=== PATIENT | male | born 1945 | race Caucasian/White ===

== ENCOUNTER 2017-12-18 06:29 | Day surgery (SDC) | payer MEDICARE, OTHER ==
[2017-12-18] VITALS (89 sets, daily range): BP systolic 122–150; BP diastolic 62–102; PULSE 49–58; TEMP 97.7; O2SAT 95–99
[~2017-12-18] VITALS: Ht 172.8 cm; Wt 87.7 kg
[~2017-12-18 06:29] MED LIST: ASPIRIN 81M81 MG/TA2 PO; FISH OIL 1000MG1 CAP PO; LIPITOR 40MG TA40 MG PO; LOPRESSOR 550 MG/TAB PO; NEXIUM 40MG40 MG PO; NIASPAN750 MG PO; NITROSTAT0.4 MG/TAB SL; OFEV100 MG PO; OXYGEN; PLAVIX 75MG TAB75 MG PO; PRESERVISION1 SGL PO
[2017-12-18 07:09] LABS: PROTHROMBIN TIME 11.6 SECONDS (9.7-12.8)
[2017-12-18 07:10] LABS: HEMATOCRIT 40.4 % (42.0-52.0); HEMOGLOBIN 13.3 g/dl (13.5-18.0); MEAN CELL VOLUME 94 fl (80.0-100.0); MEAN CORPUSCULAR HEMOGLOBIN 31 pg (27.0-31.0); MEAN CORPUSCULAR HGB CONC 33 g/dl (33.0-37.0); MEAN PLATELET VOLUME 10.4 fl (7.4-10.4); PLATELET COUNT 169 K/mm3 (130-400); REDCELL DISTRIBUTION WIDTH-CV 12.5 % (11.5-14.5)
[2017-12-18] MEDS ORDERED: AMBIEN 10MG10 MG PO (07:32)
[2017-12-18] MEDS ORDERED: OCUVITE1 TA1 PO (07:33)
[2017-12-18] MEDS ORDERED: CALCIUM 600-D 61 TAB PO (07:34)
[2017-12-18] MEDS ORDERED: CENTRUM SILVER1 TAB PO (07:35)
[2017-12-18 07:36] LABS: CALCIUM 9.7 mg/dL (8.4-10.2); CREATININE, serum 1.03 mg/dL (0.66-1.25); POTASSIUM 3.8 mmol/L (3.4-5.0)
[2017-12-18] MEDS ORDERED: IMDUR 30MG30 MG/TAB PO (07:43)
[2017-12-18] MEDS ORDERED: VIAGRA50 M1 PO (07:45)
[2017-12-18] MEDS ORDERED: MASON NATURAL2000 IU PO (07:46)
[2017-12-18] MEDS ORDERED: PROTONIX 40MG T40 MG PO (12:12)
== END 2017-12-18 17:15 | disposition home or self-care (01) ==
LOC: COL.CAR 06:29
PROVIDERS: Internal Medicine Cardiovascular Disease
DX: I25.10 Atherosclerotic heart disease of native coronary artery without angina pectoris (principal); I35.0 Nonrheumatic aortic (valve) stenosis; I71.2 Thoracic aortic aneurysm, without rupture; E78.5 Hyperlipidemia, unspecified; I10 Essential (primary) hypertension; J84.9 Interstitial pulmonary disease, unspecified; I25.2 Old myocardial infarction; K21.9 Gastro-esophageal reflux disease without esophagitis; Z95.5 Presence of coronary angioplasty implant and graft; Z79.82 Long term (current) use of aspirin; Z79.01 Long term (current) use of anticoagulants; Z87.891 Personal history of nicotine dependence; Z82.49 Family history of ischemic heart disease and other diseases of the circulatory system; Z82.3 Family history of stroke
CPT/HCPCS: J2250; J2704; J3010; Q9967

== ENCOUNTER 2020-04-07 21:55 | Observation (INO) | payer MEDICARE, OTHER ==
[2020-04-07] VITALS (23 sets, daily range): BP systolic 139; BP diastolic 62; PULSE 63; TEMP 97.6; O2SAT 93–97
[~2020-04-07] VITALS: Ht 172.7 cm; Wt 81.6 kg
[~2020-04-07 21:55] MED LIST changes: +AMBIEN 10MG10 MG PO; +CALCIUM 600-D 61 TAB PO; +CENTRUM SILVER1 TAB PO; +IMDUR 30MG30 MG/TAB PO; +MASON NATURAL2000 IU PO; +OCUVITE1 TA1 PO; +PROTONIX 40MG T40 MG PO; +VIAGRA50 M1 PO
[2020-04-08] VITALS (675 sets, daily range): BP systolic 110–151; BP diastolic 56–75; PULSE 51–75; TEMP 97.6–98; O2SAT 80–100
[2020-04-08] MEDS ORDERED: CITRACAL-D3 ER1 EACH PO (00:14)
[2020-04-08] MEDS ORDERED: CENTRUM SILVER1 TAB PO (00:16)
[2020-04-08] MEDS ORDERED: ELIQUIS 5MG PO (00:18)
[2020-04-08] MEDS ORDERED: FLONASEALLERGY NS (00:20)
[2020-04-08] MEDS ORDERED: CARDIZEM120 MG PO (00:30)
[2020-04-08] MEDS ORDERED: VITAMINC1000TA PO (00:31)
[2020-04-08] MEDS ORDERED: TAZTIA120 PO (01:25)
[2020-04-08 01:40] LABS: INR 1.5 (0.8-3.0); PROTHROMBIN TIME 17.1 SECONDS (9.7-12.8)
[2020-04-08 01:43] LABS: MAGNESIUM 2.1 mg/dL (1.6-2.3); PARTIAL THROMBOPLASTIN TIME 37.1 SECONDS (26.0-37.0)
[2020-04-08 01:57] LABS: TROPONIN-I < 0.012 ng/mL (0.000-0.035)
--- NOTE | 2020-04-08 02:46 | NUR ---
221 - RECEIVED REPORT FROM JORDEN JAY FROM [facility]. 2323 - PT ARRIVED IN UNIT, ABLE TO TO TRASNFER SELF TO BED INDEPENDENTLY. DENIES ANY PAIN AT THIS TIME, VSS, AND ON ROOM AIR. PT ORIENTED TO VISITATION POLICY. CALL LIGHT AND NECESSITIES WITHIN REACH. 0116 - CALLED [facility] FOR CT OF CHEST AND ECHO RESULTS, AND PER JORDEN DELEON, STILL PENDING AND WILL NOT BE AVAILABLE TONIGHT. FAX NUMBER PROVIDED FOR WHEN RESULT IS OUT IN THE MORNING. JACQUES FLORES MADE AWARE. WILL PASS THIS TO ONCOMING DAY SHIFT NURSE WELL.
[2020-04-08 05:50] LABS: BASO % 0.5 % (0.0-2.0); EOS # 0.2 (0.0-0.7); EOS % 3.6 % (0-4.0); GRAN # 3.8 (1.4-6.5); GRAN % 63.3 % (42.2-75.2); HEMATOCRIT 39.5 % (42.0-52.0); HEMOGLOBIN 13.2 g/dl (13.5-18.0); LYMPH % 17.1 % (20.0-51.0); MEAN CELL VOLUME 90 fl (80.0-100.0); MEAN CORPUSCULAR HEMOGLOBIN 30 pg (27.0-31.0); MEAN CORPUSCULAR HGB CONC 33 g/dl (33.0-37.0); MEAN PLATELET VOLUME 10.3 fl (7.4-10.4); MONO # 0.9 (0.1-0.6); MONO % 15.2 % (1.7-9.3); PLATELET COUNT 125 K/mm3 (130-400); RED BLOOD COUNT 4.37 M/mm3 (4.20-5.60); REDCELL DISTRIBUTION WIDTH-CV 13.5 % (11.5-14.5)
[2020-04-08] MEDS ORDERED: SINGULAIR 110 MG/TAB PO (05:50)
[2020-04-08 05:59] LABS: ALANINE AMINOTRANSFERASE 27 U/L (4-49); ALBUMIN 3.6 gm/dL (3.5-5.0); ALKALINE PHOSPHATASE 112 U/L (50-136); ANION GAP 7 mmol/L (7-16); AST,SGOT 31 U/L (15-37); BILIRUBIN,TOTAL 0.7 mg/dL (0.0-1.0); BLOOD UREA NITROGEN 16 mg/dL (9-20); CALCIUM 8.9 mg/dL (8.4-10.2); CARBON DIOXIDE 25 mmol/L (22-30); CHLORIDE 106 mmol/L (98-107); CHOLESTEROL 95 mg/dL (120-200); CHOLESTEROL RISK RATIO 3.3; CREATININE, serum 0.85 (0.66-1.25); GLUCOSE 106 mg/dL (74-106); HDL CHOLESTEROL 28 mg/dL; LDL CHOLESTEROL 43 mg/dL; POTASSIUM 4.1 mmol/L (3.4-5.0); SODIUM 138 mmol/L (137-145); TOTAL PROTEIN 6.8 gm/dL (6.4-8.2); TRIGLYCERIDE 118 mg/dL
[2020-04-08 06:10] LABS: TROPONIN-I < 0.012 ng/mL (0.000-0.035)
--- NOTE | 2020-04-08 09:43 | NUR ---
SW met with the patient to discuss discharge plan. The patient lives in [place] with his , Nay (ph#[phone]), and oldest daughter, Ariana. He reports independence with ADLs and does not have any assistance devices. He has nocturnal oxygen at home from [facility] out of [place]. The patient's PCP is Dr. David Alejandro and he receives his medications at the [facility] in [place]. He reports no difficulties obtaining his meds. The patient's advanced directives are in EMR. His DPOA-HC is his and the alternate is his daughter, Ariana. The patient plans to return home with his family upon discharge. The patient is currently on 2 liters of oxygen. SW to continue to monitor.
[2020-04-08] MEDS ORDERED: PROTONIX 40MG T40 MG PO (16:51)
--- NOTE | 2020-04-08 17:08 | NUR ---
Dr Nielson in to discharge patient. Lexiscan negative. No new findings on Chest CT. No further chest pain. Update provided to and daughter over the phone. INT removed. Pt dressed.
--- NOTE | 2020-04-08 18:29 | NUR ---
dc home ambulatory accompanied by nursing staff
== END 2020-04-08 17:25 | disposition home or self-care (01) ==
LOC: IMCU 21:55
PROVIDERS: Nurse Practitioner Family; ADMIT Student in an Organized Health Care Education/Training Program
DX: R07.89 Other chest pain (principal); I35.0 Nonrheumatic aortic (valve) stenosis; I71.9 Aortic aneurysm of unspecified site, without rupture; I10 Essential (primary) hypertension; E78.5 Hyperlipidemia, unspecified; J84.10 Pulmonary fibrosis, unspecified; I25.10 Atherosclerotic heart disease of native coronary artery without angina pectoris; Z95.5 Presence of coronary angioplasty implant and graft; Z95.2 Presence of prosthetic heart valve; K22.70 Barrett's esophagus without dysplasia; Z85.46 Personal history of malignant neoplasm of prostate; Z79.01 Long term (current) use of anticoagulants
CPT/HCPCS: A9500; J2785; J7030

== ENCOUNTER 2021-02-03 09:27 | Day surgery (SDC) | payer MEDICARE, OTHER ==
[~2021-02-03] VITALS: Ht 172.8 cm; Wt 78.8 kg
[2021-02-03] VITALS (10 sets, daily range): BP systolic 107–136; BP diastolic 56–69; PULSE 53–60; TEMP 97.3
[~2021-02-03 09:27] MED LIST changes: +CARDIZEM120 MG PO; +CITRACAL-D3 ER1 EACH PO; +ELIQUIS 5MG PO; +FLONASEALLERGY NS; +SINGULAIR 110 MG/TAB PO; +TAZTIA120 PO; +VITAMINC1000TA PO
[2021-02-03 10:19] LABS: HEMATOCRIT 43.6 % (42.0-52.0); HEMOGLOBIN 14.5 g/dl (13.5-18.0); MEAN CELL VOLUME 92 fl (80.0-100.0); MEAN CORPUSCULAR HEMOGLOBIN 31 pg (27.0-31.0); MEAN CORPUSCULAR HGB CONC 33 g/dl (33.0-37.0); MEAN PLATELET VOLUME 10.2 fl (7.4-10.4); PLATELET COUNT 169 K/mm3 (130-400); RED BLOOD COUNT 4.73 M/mm3 (4.20-5.60); REDCELL DISTRIBUTION WIDTH-CV 13.6 % (11.5-14.5)
[2021-02-03 10:28] LABS: INR 1.1 (0.8-3.0); PROTHROMBIN TIME 12.3 SECONDS (9.7-12.8)
[2021-02-03 10:29] LABS: CALCIUM 9.6 mg/dL (8.4-10.2); CREATININE, serum 1.1 (0.66-1.25); POTASSIUM 4.4 mmol/L (3.4-5.0)
[2021-02-03] MEDS ORDERED: VITAMINC1000TA PO (10:32)
[2021-02-03] MEDS ORDERED: PROTONIX 40MG T40 MG PO (10:32)
--- NOTE | 2021-02-03 11:10 | NUR ---
SEE MERGE FOR ALL MEDICATION ADMINISTRATION TIMES, INTRA AND POST SEDATION ASSESSMENT
[2021-02-03] MEDS ORDERED: LASIX 20MG TABL20 MG PO (15:14)
--- NOTE | 2021-02-03 16:15 | NUR ---
Pt returned from [employer] at 1215. Report was received from Tiff LEONARDO. Pt did well during his period of monitoring. Pt remained in sinus yuliana, 50's, no problems with TR band, pt was able to eat lunch, and dc,rx and fu instructions were reviewed. TR band was deflated with no problem, site dressed with bandaid, 2 folded 2x2s and coban. cms remains intact distal. iv dc'd with cath intact, dressing applied. Pt has been amb in room with steady gait. to exit at this time via wheelchair.
== END 2021-02-03 18:21 | disposition home or self-care (01) ==
LOC: COL.CAR 09:27
PROVIDERS: Internal Medicine Cardiovascular Disease
DX: R06.09 Other forms of dyspnea (principal); I25.10 Atherosclerotic heart disease of native coronary artery without angina pectoris; I38 Endocarditis, valve unspecified; I10 Essential (primary) hypertension; E78.5 Hyperlipidemia, unspecified; J84.9 Interstitial pulmonary disease, unspecified; K22.70 Barrett's esophagus without dysplasia; Z95.2 Presence of prosthetic heart valve; Z86.79 Personal history of other diseases of the circulatory system; Z79.82 Long term (current) use of aspirin; Z79.899 Other long term (current) drug therapy; Z20.822 Contact with and (suspected) exposure to COVID-19
CPT/HCPCS: C1769; C1887; J1644; J2250; J3010; Q9967